=== PATIENT | male | born 1945 | race Caucasian/White ===

== ENCOUNTER 2016-08-26 07:10 | Day surgery (SDC) | payer MEDICARE, OTHER ==
[~2016-08-26] VITALS: Ht 185.4 cm; Wt 101.6 kg
[~2016-08-26 07:10] MED LIST: 0.9% Sodium Chloride 1,000 ML IV SCH; ASPI-973 PO; FLUT16SP NS; LISI1TAB11 PO; NAPR220C11 PO; Sodium Chloride LOK Flush 10 mL Syringe IV PRN; TADA10TA PO; fentaNYL-PF 50 mCg/mL 2 mL Inj IVPUSH PRN
[2016-08-26 07:23] VITALS: BP 139/87; PULSE 79; RESP 14; O2SAT 97
[2016-08-26] MEDS ORDERED: OMEP20TA86 PO (07:27)
[2016-08-26 08:40] VITALS: BP 115/67; PULSE 64; RESP 14; O2SAT 94
[2016-08-26 08:50] VITALS: BP 106/57; PULSE 58; RESP 14; O2SAT 94
[2016-08-26 09:00] VITALS: BP 110/64; PULSE 56; RESP 12; O2SAT 93
--- NOTE | 2016-08-26 09:24 | ENDO ---
[address] [address] ENDOSCOPY PROCEDURE PATIENT: JARED ORTEGA : 1945 MR#: [id number] ADMIT: 08/26/2016 JOB ID: [id number] PRIMARY PROVIDER: Abi Burrows PA-C PROCEDURE: Colonoscopy. INDICATIONS: A 70-year-old male with a personal history of colon polyps, returning for surveillance. EQUIPMENT: [id number]. SEDATION: 4 mg Versed and 100 mcg fentanyl. COMPLICATIONS: None identified. BOWEL PREPARATION: Fair, adequate exam. PROCEDURE INFORMATION: After the risks and benefits were explained, written and verbal informed consent was obtained. The patient was brought into the endoscopy suite and placed into the left lateral decubitus position. Sedation was achieved using the above-stated medications with the addition of oxygen via nasal cannula. A digital rectal examination was accomplished. No significant pathology appreciated. The scope was introduced into the rectum and advanced under direct visualization to the level of the cecum, as identified by the appendiceal orifice and ileocecal valve. The scope was slowly withdrawn to carefully examine the mucosa for any defects or lesions. Retroflexed views were accomplished in the rectum. The colon was decompressed, the scope removed from the patient who tolerated the procedure well. FINDINGS: No significant polyps or mass lesions throughout. No inflammatory features including retroflexed views from within the rectum. ENDOSCOPIC DIAGNOSES: Visually unremarkable colonoscopy to cecum. RECOMMENDATIONS: Repeat colonoscopy in five years' time, sooner should symptoms warrant.
[2016-08-26 09:32] VITALS: BP 121/81; PULSE 54; RESP 14; O2SAT 94
== END 2016-08-26 23:59 | disposition home or self-care (01) ==
LOC: END 07:10
PROVIDERS: ATTEND Internal Medicine Gastroenterology
DX: Z12.11 Encounter for screening for malignant neoplasm of colon (principal); Z86.010 Personal history of colon polyps; I10 Essential (primary) hypertension; E78.00 Pure hypercholesterolemia, unspecified; J30.9 Allergic rhinitis, unspecified; F43.20 Adjustment disorder, unspecified; Z79.82 Long term (current) use of aspirin
CPT/HCPCS: 99153; G0105; G0500; J7030